=== PATIENT | female | born 1950 | race Caucasian/White ===

== ENCOUNTER → 2022-08-27 | Day surgery (SDC) | payer MEDICARE ==
[2022-08-25 10:19] LABS: BASOPHILS # (AUTO) 0.1 (0.0-0.1); EOSINOPHILS # (AUTO) 0.2 (0.0-0.4); EOSINOPHILS % 2.6 % (0.0-6.0); HEMATOCRIT 40.6 % (34.2-44.1); HEMOGLOBIN 12.9 g/dL (12.0-16.0); LYMPHOCYTES # (AUTO) 1.7 (1.0-3.2); LYMPHOCYTES % 21.9 % (18.0-39.1); MEAN CORPUSCULAR HEMOGLOBIN 29.6 pg (28-32); MEAN CORPUSCULAR HGB CONC 31.8 g/dL (31-35); MEAN CORPUSCULAR VOLUME 93.1 fL (81-99); MONOCYTES # (AUTO) 0.5 (0.2-0.8); NEUTROPHILS # (AUTO) 5.2 (2.1-6.9); NEUTROPHILS % 67.2 % (38.7-80.0); PLATELET COUNT 189 x10e3/uL (140-360); RED BLOOD COUNT 4.36 x10e6/uL (3.6-5.1)
[~2022-08-27] MED LIST: AMLODIPINE BESY10 MG PO; ASPIRIN81 MG PO; ATORVASTATIN CA40 MG PO; CLOPIDOGREL75 MG PO; FISH OIL 1,0001 EAC7; GLIPIZIDE5 MG PO; HYZAAR 100-251 EACH; INVOKANA100 MG; LIDOCAINE HCL 2% LOCAL INJ 5 ML SDV VIAL INJ ONE; METFORMIN HCL500 MG PO; METOPROLOL SUCC50 MG PO; MULTI-VITAMIN1 EACH PO; NEURONTIN300 MG PO; PROPOFOL IV EMULSION 10 MG/ML 20 ML VIAL ONE; PROTONIX20 MG PO; VITAMIN D
[2022-08-27 08:40] VITALS: BP 131/76
== END | disposition home or self-care (01) ==
LOC: OR 07:31
PROVIDERS: ATTEND Internal Medicine Gastroenterology
DX: Z12.11 Encounter for screening for malignant neoplasm of colon (principal); D17.5 Benign lipomatous neoplasm of intra-abdominal organs; K57.30 Diverticulosis of large intestine without perforation or abscess without bleeding; K64.8 Other hemorrhoids; K21.9 Gastro-esophageal reflux disease without esophagitis; I10 Essential (primary) hypertension; E11.9 Type 2 diabetes mellitus without complications; R05.9 Cough, unspecified; M06.9 Rheumatoid arthritis, unspecified; M19.90 Unspecified osteoarthritis, unspecified site; Z88.2 Allergy status to sulfonamides; Z88.8 Allergy status to other drugs, medicaments and biological substances; Z01.810 Encounter for preprocedural cardiovascular examination; Z01.812 Encounter for preprocedural laboratory examination; Z79.02 Long term (current) use of antithrombotics/antiplatelets; Z79.82 Long term (current) use of aspirin; Z79.84 Long term (current) use of oral hypoglycemic drugs; Z79.899 Other long term (current) drug therapy
CPT/HCPCS: 36415 ×2; 45380; 82948; 85025; 88305; 93005; J2001; J2704; 45378; 88304

== ENCOUNTER → 2024-04-03 | Outpatient (REF) | payer MEDICARE ==
[~2024-04-03] MED LIST changes: -LIDOCAINE HCL 2% LOCAL INJ 5 ML SDV VIAL INJ ONE; -PROPOFOL IV EMULSION 10 MG/ML 20 ML VIAL ONE
== END ==
LOC: MAMMO 07:41
PROVIDERS: ATTEND Internal Medicine
DX: Z12.31 Encounter for screening mammogram for malignant neoplasm of breast (principal); M85.88 Other specified disorders of bone density and structure, other site; N95.9 Unspecified menopausal and perimenopausal disorder
CPT/HCPCS: 77067; 77080

== ENCOUNTER 2024-09-07 05:49 | Observation (INO) | payer MEDICARE ==
[2024-09-05 09:06] LABS: BASOPHILS # (AUTO) 0.1 (0.0-0.1); BASOPHILS % 0.9 % (0.0-1.0); EOSINOPHILS # (AUTO) 0.1 (0.0-0.4); EOSINOPHILS % 1.6 % (0.0-6.0); HEMATOCRIT 43.8 % (34.2-44.1); HEMOGLOBIN 14.1 g/dL (12.0-16.0); LYMPHOCYTES # (AUTO) 1.7 (1.0-3.2); LYMPHOCYTES % 29.1 % (18.0-39.1); MEAN CORPUSCULAR HEMOGLOBIN 29.9 pg (28-32); MEAN CORPUSCULAR HGB CONC 32.2 g/dL (31-35); MEAN CORPUSCULAR VOLUME 92.8 fL (81-99); MONOCYTES # (AUTO) 0.4 (0.2-0.8); MONOCYTES % 6.5 % (4.4-11.3); NEUTROPHILS # (AUTO) 3.5 (2.1-6.9); NEUTROPHILS % 61.6 % (38.7-80.0); PLATELET COUNT 225 x10e3/uL (140-360); RED BLOOD COUNT 4.72 x10e6/uL (3.6-5.1); RED CELL DISTRIBUTION WIDTH 13.9 % (11.7-14.4); WHITE BLOOD COUNT 5.73 x10e3/uL (4.8-10.8)
[2024-09-05 09:33] LABS: INR 0.92; PROTHROMBIN TIME 12.9 seconds (11.9-14.5)
[2024-09-05 09:34] LABS: PARTIAL THROMBOPLASTIN TIME 32.5 seconds (23.8-35.5)
[2024-09-05 09:40] LABS: ANION GAP 17.2 mmol/L (8-16); CALCIUM 10.2 mg/dL (8.4-10.2); CREATININE, SERUM 1.83 mg/dL (0.57-1.11); POTASSIUM 4.2 mmol/L (3.5-5.1)
[~2024-09-07 05:49] MED LIST changes: +PROBIOTIC & AC1 EACH PO
[2024-09-07] MEDS ORDERED: MOUNJARO5 MG/0.5 M (08:10)
[2024-09-07] MEDS ORDERED: HYDRALAZINE HCL25 MG PO (08:10)
[2024-09-07] MEDS ORDERED: LIDOCAINE HCL 2% LOCAL INJ 5 ML SDV VIAL INJ ONE (08:34)
[2024-09-07] MEDS ORDERED: FENTANYL CITRATE/PF 100MCG/2 ML INJ ONE (08:34)
[2024-09-07] MEDS ORDERED: ROCURONIUM BROMIDE 1 ML IV ONE (08:34)
[2024-09-07] MEDS ORDERED: FAMOTIDINE 20 MG/2 ML VIAL IV ONE (08:35)
[2024-09-07] MEDS ORDERED: DEXAMETHASONE SOD PHOS INJ 4 MG/ML SDV ONE (08:35)
[2024-09-07] MEDS ORDERED: PROPOFOL IV EMULSION 10 MG/ML 20 ML VIAL ONE (08:35)
[2024-09-07] MEDS ORDERED: ACETAMINOPHEN 1000 MG/100 ML 100 ML IV ONE (08:35)
[2024-09-07] MEDS ORDERED: SEVOFLURANE INHAL SOLN 250 ML PEN BTL ONE (08:35)
[2024-09-07] MEDS ORDERED: ONDANSETRON HCL INJ 2MG/ML 2ML 2 MG/ML VIAL ONE (08:35)
[2024-09-07] MEDS ORDERED: KETAMINE 50MG/5ML SYR ONE (08:38)
[2024-09-07] MEDS ORDERED: GLYCOPYRROLATE INJ 0.2 MG/ML VIAL ONE (10:13)
[2024-09-07] MEDS: CEFAZOLIN SODIUM 2 GM ONE (10:18)
[2024-09-07] MEDS: LACTATED RINGER'S 1,000 ML ONE (10:18)
[2024-09-07] MEDS ORDERED: SUGAMMADEX SODIUM 200 MG/2 ML VIAL IV ONE (10:29)
[2024-09-07] MEDS ORDERED: LIDOCAINE HCL (LTA) 4 ML SOLN ONE (11:24)
[2024-09-07] MEDS ORDERED: PROMETHAZINE HCL (IM) 25 MG/ML VIAL IM PRN (11:30)
[2024-09-07] MEDS ORDERED: Morphine 10mg syringe 10 MG/ML INJ IM PRN (11:30)
[2024-09-07] MEDS ORDERED: CARISOPRODOL 350 MG TAB PO PRN (11:30)
[2024-09-07] MEDS ORDERED: HYDROMORPHONE 2MG/ML IV PRN (11:30)
[2024-09-07] MEDS ORDERED: ONDANSETRON HCL INJ 2MG/ML 2ML 2 MG/ML VIAL IV PRN (11:30)
[2024-09-07] MEDS ORDERED: ACETAMINOPHEN 325 MG TAB PO PRN (11:30)
[2024-09-07] MEDS ORDERED: MAGNESIUM/ALUMINUM/SIMETHICONE 30 ML UDC PO PRN (11:30)
[2024-09-07] MEDS ORDERED: HYDROCODON-ACE1 EA12 PO (11:32)
[2024-09-07] MEDS: FENTANYL CITRATE/PF 100MCG/2 ML INJ ONE (11:45)
[2024-09-07 14:15] VITALS: BP 142/67; PULSE 58; RESP 17; TEMP 97.6; O2SAT 96
[2024-09-07] MEDS: HYDRALAZINE HCL 25 MG TAB PO SCH (14:41)
[2024-09-07] MEDS: LACTATED RINGER'S 1,000 ML IV SCH (15:23)
[2024-09-07] MEDS: GLIPIZIDE 5 MG TAB PO SCH (16:16)
[2024-09-07] MEDS: METFORMIN HCL 500 MG TAB PO SCH (16:16)
[2024-09-07] MEDS: OXYCODONE/ACETAMINOPHEN 5-325 1 EACH TABLET PO PRN ×2 (16:23→22:38)
[2024-09-07 20:00] VITALS: BP 156/68; PULSE 51; RESP 16; TEMP 97.3; O2SAT 99
[2024-09-07] MEDS: ATORVASTATIN 40 MG TAB PO SCH (20:22)
[2024-09-07] MEDS ORDERED: ZOLPIDEM TARTRATE 5 MG TAB PO PRN (21:00)
[2024-09-08] VITALS: BP 109/58; PULSE 62; RESP 16; TEMP 98.2; O2SAT 99
[2024-09-08] MEDS: PANTOPRAZOLE SODIUM 20 MG TABLET.DR PO SCH (05:13)
[2024-09-08 06:00] VITALS: BP 126/51; PULSE 64; RESP 16; TEMP 97.9; O2SAT 99
[2024-09-08] MEDS: LOSARTAN POTASSIUM 100 MG TAB PO SCH (07:48)
[2024-09-08] MEDS: CLOPIDOGREL BISULFATE 75 MG TAB PO SCH (07:49)
[2024-09-08] MEDS: MULTIVITAMINS/MINERALS TAB PO SCH (07:49)
[2024-09-08] MEDS: METOPROLOL SUCCINATE 50 MG TAB XL PO SCH (07:49)
[2024-09-08] MEDS: GABAPENTIN 300 MG CAP PO SCH (07:49)
[2024-09-08] MEDS: AMLODIPINE BESYLATE 10 MG TAB PO SCH (07:49)
[2024-09-08 08:00] VITALS: BP 137/55; PULSE 63; RESP 19; TEMP 98.7; O2SAT 97
== END 2024-09-08 11:40 | disposition home or self-care (01) ==
LOC: OR 05:49 → PACU V 11:23 → MED/SURG2 12:40
PROVIDERS: ADMIT Neurological Surgery; ATTEND Neurological Surgery
DX: M48.062 Spinal stenosis, lumbar region with neurogenic claudication (principal); M51.16 Intervertebral disc disorders with radiculopathy, lumbar region; E11.9 Type 2 diabetes mellitus without complications; I10 Essential (primary) hypertension; Z01.810 Encounter for preprocedural cardiovascular examination; Z01.812 Encounter for preprocedural laboratory examination; Z01.818 Encounter for other preprocedural examination; Z79.84 Long term (current) use of oral hypoglycemic drugs; M85.80 Other specified disorders of bone density and structure, unspecified site; M19.90 Unspecified osteoarthritis, unspecified site; L40.9 Psoriasis, unspecified; I65.29 Occlusion and stenosis of unspecified carotid artery
CPT/HCPCS: 36415 ×2; 63047; 63048; 71046; 72020; 80048; 82948; 85025; 85610; 85730; 86850; 86900; 88304; 88311; 93005; 97116; 97161; G0378 ×2; J0131; J0690 ×2; J2003; J2405; J2704; J3010; J7121; J1100